=== PATIENT | male | born 1960 | race Caucasian/White ===

== ENCOUNTER → 2018-06-21 | Day surgery (SDC) | payer OTHER ==
[~2018-06-21] MED LIST: ACETAMINOPHEN650 MG RC; ACIDOPHILUS1 EAC1 PO; CEFTRIAXONE1 GM IV; CHLORHEXIDINE; CLONIDINE HCL0.1 MG PO; COMBIVENT RESPIM4 GM IH; ENOXAPARIN60 MG/0.6 SQ; FENTANYL CITRATE/PF 100MCG/2 ML INJ ONE; FUROSEMIDE40 MG/4 ML IV; IBUPROFEN200 MG PO; IOPAMIDOL 610MG/1ML 300 MG/ML VIAL IV ONE; KCL PO; LIDOCAINE HCL 2% LOCAL INJ 5 ML SDV VIAL INJ ONE; MIDAZOLAM HCL 2 MG/2 ML VIAL ONE; MUCINEX DM ER1 EACH PO; ONDANSETRON HCL INJ 2 MG/ML VIAL ONE; PROPOFOL IV EMULSION 10 MG/ML 20 ML VIAL ONE; ROCURONIUM BROMIDE 10 MG/ML 5ML VIAL ONE; SENNA/DOCUSATE PO; SEVOFLURANE INHAL SOLN 250 ML PEN BTL ONE; SUCCINYLCHOLINE 200 MG/10 ML SYR ONE; TAMSULOSIN HCL0.4 MG PO; ZOFRAN ODT4 MG; azithromycin
--- OUTSIDE RECORDS SUMMARY | 2018-06-21 12:58 | XMS REPORT | Clinical Summary ---
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 Disp. Refills Start End Date Status Date ipratropium-albuterol Take 3 mL by nebulization 270 mL 0 06/04/20 07/04/20 Active (DUO-NEB) 0.5-2.5 mg/mL every 6 (six) hours while 18 18 nebulizer awake for 30 days. furosemide (LASIX) 40 mg Take 1 tablet (40 mg 60 tablet 0 06/04/20 07/04/20 Active tablet total) by mouth 2 (two) 18 18 times a day for 30 days. diphenhydrAMINE Take by mouth 4 (four) 05/28/20 Discontin (BENADRYL) 12.5 mg/5 mL times a day as needed for 18 ued liquid allergies. acetaminophen (TYLENOL) Take 325 mg by mouth 05/28/20 Discontin 325 MG tablet every 6 (six) hours as 18 ued needed for fever. Active Problems Problem Noted Date Other sleep apnea 05/28/2018 Class 3 obesity due to excess calories with serious comorbidity and body 05/28/2018 mass index (BMI) of 50.0 to 59.9 in adult Resolved Problems Problem Noted Date Resolved Date Diastolic heart failure (HCC) 05/29/2018 06/04/2018 Community acquired pneumonia of right lower lobe of lung (HCC) 05/29/2018 06/04/2018 Respiratory distress 05/28/2018 06/04/2018 Encounters Date Type Specialty Care Team Description 06/04/2018 Documentation Pulmonology Jake Fragoso MD 05/28/2018 [facility] Cresencio Jacobs MD Respiratory distress - Encounter Aris Harman DO (Primary Dx); 06/04/2018 Winifred Pelaez Pulmonary congestion; Mansoor Rosales MD Pitting edema; Pneumonia due to infectious organism, unspecified laterality, unspecified part of lung; COPD exacerbation after 06/20/2017 Family History Medical History Relation Name Comments Hypertension Father Relation Name Status Comments Father Social History Tobacco Use Types Packs/Day Years Used Date Former Smoker Cigarettes 0.5 08/20/1987 - 08/20/1988 Smokeless Tobacco: Former User Alcohol Use Drinks/Week oz/Week Comments No Sex Assigned at Date Recorded Not on file Last Filed Vital Signs Vital Sign Reading Time Taken Blood Pressure 124/64 06/04/2018 6:00 PM CDT Pulse 82 06/04/2018 6:00 PM CDT Temperature 36.4 C (97.5 F) 06/04/2018 3:00 PM CDT Respiratory Rate 22 06/04/2018 5:00 PM CDT Oxygen Saturation 91% 06/04/2018 5:00 PM CDT Inhaled Oxygen - - Concentration Weight 133 kg (294 lb 1.6 oz) 06/02/2018 5:00 AM CDT Height 172.7 cm (5' 8") 05/28/2018 1:32 PM CDT Body Mass Index 44.72 06/02/2018 5:00 AM CDT Plan of Treatment Health Maintenance Due Date Last Done Comments COLON CANCER SCREENING 11/07/2011 SHINGRIX VACCINE (#1) 11/07/2011 INFLUENZA VACCINE 03/31/2018 Procedures Procedure Name Priority Date/Time Associated Diagnosis Comments ESTIMATED GFR Routine 06/04/2018 Results for this 4:48 AM CDT procedure are in the results section. COMPREHENSIVE METABOLIC Routine 06/04/2018 Results for this PANEL 4:48 AM CDT procedure are in the results section. HC COMPLETE BLD COUNT Routine 06/04/2018 Results for this W/AUTO DIFF 4:48 AM CDT procedure are in the results section. XR CHEST 2 VW Routine 06/03/2018 Results for this 12:44 PM CDT procedure are in the results section. B NATRIURETIC PEPTIDE Routine 06/03/2018 Results for this 4:10 AM CDT procedure are in the results section. HIV 1, 2 ANTIBODY Routine 06/03/2018 Results for this 4:10 AM CDT procedure are in the results section. ESTIMATED GFR Routine 06/03/2018 Results for this 4:10 AM CDT procedure are in the results section. COMPREHENSIVE METABOLIC Routine 06/03/2018 Results for this PANEL 4:10 AM CDT procedure are in the results section. HC COMPLETE BLD COUNT Routine 06/03/2018 Results for this W/AUTO DIFF 4:10 AM CDT procedure are in the results section. ESTIMATED GFR Routine 06/02/2018 Results for this 5:23 AM CDT procedure are in the results section. COMPREHENSIVE METABOLIC Routine 06/02/2018 Results for this PANEL 5:23 AM CDT procedure are in the results section. HC COMPLETE BLD COUNT Routine 06/02/2018 Results for this W/AUTO DIFF 5:23 AM CDT procedure are in the results section. ESTIMATED GFR Routine 06/01/2018 Results for this 4:22 AM CDT procedure are in the results section. HC COMPLETE BLD COUNT Routine 06/01/2018 Results for this W/AUTO DIFF 4:22 AM CDT procedure are in the results section. BASIC METABOLIC PANEL Routine 06/01/2018 Results for this 4:22 AM CDT procedure are in the results section. ESTIMATED GFR Routine 05/31/2018 Results for this 4:11 AM CDT procedure are in the results section. BASIC METABOLIC PANEL Routine 05/31/2018 Results for this 4:11 AM CDT procedure are in the results section. MAGNESIUM LEVEL Routine 05/31/2018 Results for this 4:11 AM CDT procedure are in the results section. CBC WITH PLATELET AND Routine 05/31/2018 Results for this DIFFERENTIAL 4:11 AM CDT procedure are in the results section. XR CHEST 1 VW PORTABLE Routine 05/30/2018 Results for this 6:52 AM CDT procedure are in the results section. LIPID PANEL Routine 05/30/2018 Results for this 4:12 AM CDT procedure are in the results section. HEMOGLOBIN A1C Routine 05/30/2018 Results for this 4:12 AM CDT procedure are in the results section. ESTIMATED GFR Routine 05/30/2018 Results for this 4:12 AM CDT procedure are in the results section. BASIC METABOLIC PANEL Routine 05/30/2018 Results for this 4:12 AM CDT procedure are in the results section. MAGNESIUM LEVEL Routine 05/30/2018 Results for this 4:12 AM CDT procedure are in the results section. CBC WITH PLATELET AND Routine 05/30/2018 Results for this DIFFERENTIAL 4:12 AM CDT procedure are in the results section. XR CHEST 1 VW PORTABLE Timed 05/29/2018 Results for this 6:43 AM CDT procedure are in the results section. ESTIMATED GFR Routine 05/29/2018 Results for this 5:10 AM CDT procedure are in the results section. PHOSPHORUS LEVEL Routine 05/29/2018 Results for this 5:10 AM CDT procedure are in the results section. MAGNESIUM LEVEL Routine 05/29/2018 Results for this 5:10 AM CDT procedure are in the results section. BASIC METABOLIC PANEL Routine 05/29/2018 Results for this 5:10 AM CDT procedure are in the results section. HC COMPLETE BLD COUNT Routine 05/29/2018 Results for this W/AUTO DIFF 5:10 AM CDT procedure are in the results section. URINE DRUGS OF ABUSE Routine 05/28/2018 Results for this SCREEN 6:00 PM CDT procedure are in the results section. LEGIONELLA URINARY Routine 05/28/2018 Results for this ANTIGEN 2:43 PM CDT procedure are in the results section. STREPTOCOCCUS PNEUMONIAE Routine 05/28/2018 Results for this URINARY ANTIGEN 2:43 PM CDT procedure are in the results section. ECHOCARDIOGRAM 2D Routine 05/28/2018 Results for this COMPLETE W MMODE SPECTRAL 1:31 PM CDT procedure are in the COLOR DOPPLER ([id number]) results section. TROPONIN Timed 05/28/2018 Results for this 12:10 PM CDT procedure are in the results section. RESPIRATORY PATHOGEN STAT 05/28/2018 Results for this PANEL 8:28 AM CDT procedure are in the results section. INFLUENZA ANTIGEN Routine 05/28/2018 Results for this 8:28 AM CDT procedure are in the results section. XR CHEST 1 VW PORTABLE STAT 05/28/2018 Results for this 7:44 AM CDT procedure are in the results section. VENOUS BLOOD GAS STAT 05/28/2018 Results for this 7:25 AM CDT procedure are in the results section. BLOOD CULTURE, AEROBIC & Routine 05/28/2018 Results for this ANAEROBIC 7:25 AM CDT procedure are in the results section. CREATINE KINASE, TOTAL STAT 05/28/2018 Results for this (CPK) 7:15 AM CDT procedure are in the results section. LACTIC ACID LEVEL, SEPSIS STAT 05/28/2018 Results for this - NOW AND REPEAT 2X EVERY 7:15 AM CDT procedure are in the 3 HOURS results section. ESTIMATED GFR STAT 05/28/2018 Results for this 7:15 AM CDT procedure are in the results section. B NATRIURETIC PEPTIDE STAT 05/28/2018 Results for this 7:15 AM CDT procedure are in the results section. TROPONIN STAT 05/28/2018 Results for this 7:15 AM CDT procedure are in the results section. COMPREHENSIVE METABOLIC STAT 05/28/2018 Results for this PANEL 7:15 AM CDT procedure are in the results section. HC COMPLETE BLD COUNT STAT 05/28/2018 Results for this W/AUTO DIFF 7:15 AM CDT procedure are in the results section. BLOOD CULTURE, AEROBIC & Routine 05/28/2018 Results for this ANAEROBIC 7:15 AM CDT procedure are in the results section. ECG ED PRELIMINARY Routine 05/28/2018 Results for this INTERPRETATION 7:11 AM CDT procedure are in the results section. NH CRITICAL CARE, E/M Routine 05/28/2018 Results for this 30-74 MINUTES 7:11 AM CDT procedure are in the results section. ECG 12-LEAD STAT 05/28/2018 Results for this 7:09 AM CDT procedure are in the results section. after 06/20/2017 Results * Estimated GFR (06/04/2018 4:48 AM) Only the most recent of 8 results within the time period is included. Estimated GFR 67 mL/min/1.73 m2 [facility] Comment: PATHOLOGY AND [employer] GENOMIC MEDICINE rpretation G1 >=90 Normal or high G2 60-89Mildly decreased [id number] Mildly to moderately decreased [id number] Moderately to severely decreased G4 15-29Severely decreased G5 <15Kidney failure The eGFR was calculated using the Chronic Kidney Disease Epidemiology Collaboration (CKD-EPI) equation. Interpretation is based on recommendations of the National Kidney Foundation-Kidney Disease Outcomes Quality Initiative (NKF-KDOQI) published in 2014. Specimen Plasma specimen Performing Organization Address City/State/Zipcode Phone Number [facility] [address] [place] [address] PATHOLOGY AND GENOMIC MEDICINE * CBC with platelet and differential (06/04/2018 4:48 AM) Only the most recent of 8 results within the time period is included. WBC 10.1 4.2 - 11.0 k/uL [facility] OF PATHOLOGY AND GENOMIC MEDICINE RBC 5.96 (H) 4.04 - 5.86 m/uL [facility] OF PATHOLOGY AND GENOMIC MEDICINE HGB 17.3 13.0 - 17.3 g/dL [facility] OF PATHOLOGY AND GENOMIC MEDICINE HCT 55.9 (H) 34.0 - 45.0 % [facility] OF PATHOLOGY AND GENOMIC MEDICINE MCV 93.8 80.0 - 98.0 fL [facility] OF PATHOLOGY AND GENOMIC MEDICINE MCH 29.0 27.0 - 34.0 pg [facility] OF PATHOLOGY AND GENOMIC MEDICINE MCHC 30.9 (L) 31.5 - 36.5 g/dL [facility] OF PATHOLOGY AND GENOMIC MEDICINE RDW - SD 48.2 37.0 - 51.0 fL [facility] OF PATHOLOGY AND GENOMIC MEDICINE MPV 10.7 (H) 7.4 - 10.4 fL [facility] OF PATHOLOGY AND GENOMIC MEDICINE Platelet count 170 150 - 400 k/uL [facility] OF PATHOLOGY AND GENOMIC MEDICINE Nucleated RBC 0.00 /100 WBC [facility] OF PATHOLOGY AND GENOMIC MEDICINE Neutrophils 81.3 (H) 36.0 - 66.0 % [facility] OF PATHOLOGY AND GENOMIC MEDICINE Lymphocytes 8.5 (L) 24.0 - 44.0 % [facility] OF PATHOLOGY AND GENOMIC MEDICINE Monocytes 9.0 (H) 0.0 - 6.0 % [facility] OF PATHOLOGY AND GENOMIC MEDICINE Eosinophils 0.7 0.0 - 6.0 % [facility] OF PATHOLOGY AND GENOMIC MEDICINE Basophils 0.2 0.0 - 1.2 % [facility] PATHOLOGY AND GENOMIC MEDICINE Immature granulocytes 0.3 0.0 - 1.0 % [facility] OF PATHOLOGY AND GENOMIC MEDICINE Specimen Blood Performing Organization Address City/State/Zipcode Phone Number [place] [phone] [place] [address] PATHOLOGY AND GENOMIC MEDICINE * Comprehensive metabolic panel (06/04/2018 4:48 AM) Only the most recent of 4 results within the time period is included. Sodium 141 135 - 150 mEq/L [facility] OF PATHOLOGY AND GENOMIC MEDICINE Potassium 3.6 3.5 - 5.0 mEq/L [facility] OF PATHOLOGY AND GENOMIC MEDICINE Chloride 88 (L) 98 - 112 mEq/L [facility] OF PATHOLOGY AND GENOMIC MEDICINE CO2 43 (HH) 24 - 31 mmol/L [facility] OF Comment: PATHOLOGY AND Results called to and read [employer] [facility] back by JOAQUIN VAUGHAN RN ([facility]) at05:46 06/04/2018by __VR. Anion gap 10@ANIO 7 - 15 mEq/L [facility] OF PATHOLOGY AND GENOMIC MEDICINE BUN 35 (H) 7 - 18 mg/dL [facility] OF PATHOLOGY AND GENOMIC MEDICINE Creatinine 1.20 0.70 - 1.20 mg/dL [facility] OF PATHOLOGY AND GENOMIC MEDICINE Glucose 124 (H) 65 - 100 mg/dL [facility] OF PATHOLOGY AND GENOMIC MEDICINE Calcium 9.3 8.3 - 10.2 mg/dL [facility] OF PATHOLOGY AND GENOMIC MEDICINE Protein 8.1 6.3 - 8.3 g/dL [facility] OF PATHOLOGY AND GENOMIC MEDICINE Albumin 3.6 3.5 - 5.0 g/dL [facility] OF PATHOLOGY AND GENOMIC MEDICINE A/G ratio 0.8 0.7 - 3.8 [facility] OF PATHOLOGY AND GENOMIC MEDICINE Alkaline phosphatase 61 0 - 129 U/L [facility] PATHOLOGY AND GENOMIC MEDICINE AST 50 10 - 50 U/L [facility]MENT OF PATHOLOGY AND GENOMIC MEDICINE ALT 120 (H) 5 - 50 U/L [facility] OF PATHOLOGY AND GENOMIC MEDICINE Total bilirubin 1.5 (H) 0.2 - 1.2 mg/dL [facility] OF PATHOLOGY AND GENOMIC MEDICINE Specimen Plasma specimen Performing Organization Address City/State/Zipcode Phone Number [facility] OF [facility] [place] [address] PATHOLOGY AND GENOMIC MEDICINE * XR Chest 2 Vw (06/03/2018 12:44 PM) Narrative Performed At EXAMINATION:XR CHEST 2 VW RADIANT CLINICAL HISTORY:Atelectasis COMPARISON:05/30/2018. FINDINGS: Two views of the chest demonstrate normal cardiomediastinal silhouette. Pulmonary vasculature is within normal limits. Resolution of bibasilar platelike subsegmental axis are seen. Left lower lobe parenchymal scarring as prior. There is no evidence of consolidation or pleural effusion.. Regional osseous structures is unremarkable. IMPRESSION: No radiographic evidence of acute cardiopulmonary process or pneumonia. Interval resolution of bibasilar platelike subsegmental atelectasis. [id number] Procedure Note Hm Interface, Radiology Results Incoming - 06/03/2018 1:17 PM CDT EXAMINATION: XR CHEST 2 VW CLINICAL HISTORY: Atelectasis COMPARISON: 05/30/2018. FINDINGS: Two views of the chest demonstrate normal cardiomediastinal silhouette. Pulmonary vasculature is within normal limits. Resolution of bibasilar platelike subsegmental axis are seen. Left lower lobe parenchymal scarring as prior. There is no evidence of consolidation or pleural effusion.. Regional osseous structures is unremarkable. IMPRESSION: No radiographic evidence of acute cardiopulmonary process or pneumonia. Interval resolution of bibasilar platelike subsegmental atelectasis. [id number] Performing Organization Address City/State/Zipcode Phone Number [place] [address] [place] [address] * HIV 1, 2 antibody (06/03/2018 4:10 AM) HIV 1, 2 antibody Non-Reactive Non-reactive [facility] OF Comment: PATHOLOGY AND Starting from November 27 2015, [employer] MEDICINE 4th generation HIV screening and confirmation assays are in use at [facility], consistent with the CDC-recommended algorithm. The screening test detects antibodies to HIV-1, HIV-2 and the p24 antigen. Positive screening results will be automatically reflexed to a HIV-1/HIV-2 differentiation assay. Indeterminant HIV-1 results will be further automatically reflexed to a nucleic acid test for detection of acute infection. Western blot will no longer be performed as a confirmation test. For a quick reference guide on the testing algorithm, please refer to: http://stacks.cdc.gov/view/cdc /36663. Performing Organization Address City/[facility] Cent[facility] Phone Number [facility] OF [address] [place] [address] PATHOLOGY AND GENOMIC MEDICINE * B natriuretic peptide (06/03/2018 4:10 AM) Only the most recent of 2 results within the time period is included. BNP <3 0 - 100 pg/mL [facility] OF PATHOLOGY AND GENOMIC MEDICINE Performing Organization Address City/State/Zipcode Phone Number [facility] OF [address] [place] [address] PATHOLOGY AND GENOMIC MEDICINE * Basic metabolic panel (06/01/2018 4:22 AM) Only the most recent of 4 results within the time period is included. Sodium 144 135 - 150 mEq/L [facility] OF PATHOLOGY AND GENOMIC MEDICINE Potassium 3.6 3.5 - 5.0 mEq/L [facility] OF PATHOLOGY AND GENOMIC MEDICINE Chloride 92 (L) 98 - 112 mEq/L [facility] OF PATHOLOGY AND GENOMIC MEDICINE CO2 45 (HH) 24 - 31 mmol/L [facility] OF Comment: PATHOLOGY AND Results called to and read [facility] back by ROBBY LAL RN AT 05:1110 BY LB. Anion gap 7@ANIO 7 - 15 mEq/L [facility] OF PATHOLOGY AND GENOMIC MEDICINE BUN 29 (H) 7 - 18 mg/dL [facility] OF PATHOLOGY AND GENOMIC MEDICINE Creatinine 1.10 0.70 - 1.20 mg/dL [facility] OF PATHOLOGY AND GENOMIC MEDICINE Glucose 109 (H) 65 - 100 mg/dL [facility] OF PATHOLOGY AND GENOMIC MEDICINE Calcium 9.3 8.3 - 10.2 mg/dL [facility] OF PATHOLOGY AND GENOMIC MEDICINE Specimen Plasma specimen Performing Organization Address City/[facility]/[place] [address] PATHOLOGY AND GENOMIC MEDICINE * Magnesium level (05/31/2018 4:11 AM) Only the most recent of 3 results within the time period is included. Magnesium 2.10 1.60 - 2.60 mg/dL [facility] OF PATHOLOGY AND GENOMIC MEDICINE Specimen Plasma specimen Performing Organization Address City/[facility] [place] [address] PATHOLOGY AND [facility] MEDICINE * XR Chest 1 Vw Portable (05/30/2018 6:52 AM) Only the most recent of 3 results within the time period is included. Narrative Performed At EXAMINATION:XR CHEST 1 VW PORTABLE RADIANT CLINICAL HISTORY:acute respiratory failure XR CHEST 1 VW PORTABLEimages are submitted COMPARISON:05/29/2018 Impression: The cardiac silhouette is enlarged. The pulmonary vasculature is within normal limits. The lung zones demonstrate minimal platelike atelectasis to be present at the lower lung bases. There is no pleural effusion or pneumothorax. There is minimal change in the appearance of the chest since the prior study. [id number] Procedure Note Hm Interface, Radiology Results Incoming - 05/30/2018 7:27 AM CDT EXAMINATION: XR CHEST 1 VW PORTABLE CLINICAL HISTORY: acute respiratory failure XR CHEST 1 VW PORTABLE images are submitted COMPARISON: 05/29/2018 Impression: The cardiac silhouette is enlarged. The pulmonary vasculature is within normal limits. The lung zones demonstrate minimal platelike atelectasis to be present at the lower lung bases. There is no pleural effusion or pneumothorax. There is minimal change in the appearance of the chest since the prior study. [id number] Performing Organization Address City/[facility] Centercode Phone Number [facility] [address] [place] [address] * Hemoglobin A1c (05/30/2018 4:12 AM) Hemoglobin A1C 5.6 4.0 - 6.0 % [facility] Comment: PATHOLOGY AND GENOMIC MEDICINE Less than 6% - Goal of therapy for Type II Diabetes Less than 7%-Goal of therapy for Type I Diabetes Less than 8%-Accepta ble control for Type I or Type II Diabetes Greater than 8%-Unacceptabl e control; action indicated. ([id number]) Specimen Blood Performing Organization Address City/[facility] Centercode Phone Number [facility] [address] [place] [address] PATHOLOGY AND GENOMIC MEDICINE * Lipid panel (05/30/2018 4:12 AM) Cholesterol 157 0 - 199 mg/dL [facility] OF PATHOLOGY AND GENOMIC MEDICINE Triglycerides 117 0 - 149 mg/dL [facility] OF PATHOLOGY AND GENOMIC MEDICINE HDL cholesterol 34 (L) 40 - 9,999 mg/dL [facility] OF PATHOLOGY AND GENOMIC MEDICINE LDL cholesterol 109 (H)Comment: Result 0 - 99 mg/dL [facility] OF obtained by direct LDL PATHOLOGY AND measurement GENOMIC MEDICINE Lipid panel See below [facility] interpretation Comment: PATHOLOGY AND Total Cholesterol GENOMIC MEDICINE (mg/dL) LDL Cholesterol (mg/dL) <200 Desirable <100 Optimal 200-239Borderline -[id number] 29Near or above optimal >=240High 130-159Borderline- high 160-189High >=190Very high HDL Cholesterol (mg/dL) Triglycerides (mg/dL) <40Low <150 Normal >=60 High 150-199Borderline- high 200-499High >=500Very high Risk Catergories that modify LDL goals. Risk Catergories LDL goal (mg/dL) CHD and CHD risk equivalent <100 (10-year risk >20%) Multiple (2+) risk factors <130 (10-year risk=<20%) 0-1 risk factors <160 (<10-year risk) Defining levels of lipids in metabolic syndrome Triglycerides >=150 mg/dL HDL Cholesterol Men <40 mg/dL Women <50 mg/dL Non-HDL cholesterol is a second target for therapy in persons with high triglycerides (>=200 mg/dL) Specimen Plasma specimen Performing Organization Address City/[facility] Centercode Phone Number [facility] [address] [place] [phone] PATHOLOGY AND GENOMIC MEDICINE * Phosphorus level (05/29/2018 5:10 AM) Phosphorus 3.4 2.4 - 4.5 mg/dL [facility] OF PATHOLOGY AND GENOMIC MEDICINE Specimen Plasma specimen Performing Organization Address [facility] Phone Number [facility] [address] [place] [address] PATHOLOGY AND GENOMIC MEDICINE * Urine drugs of abuse screen (05/28/2018 6:00 PM) Amphetamine screen, urine Negative [facility] OF PATHOLOGY AND GENOMIC MEDICINE Barbiturate screen, urine Negative [facility] OF PATHOLOGY AND GENOMIC MEDICINE Benzodiazepine screen, Negative [facility] OF urine PATHOLOGY AND GENOMIC MEDICINE Cannabinoid screen, urine Negative [facility] OF PATHOLOGY AND GENOMIC MEDICINE Cocaine screen, urine Negative [facility] OF PATHOLOGY AND GENOMIC MEDICINE Methadone metabolite Negative [facility] OF (EDDP), urine PATHOLOGY AND GENOMIC MEDICINE Opiates screen, urine Negative [facility] DEPARTMENT OF PATHOLOGY AND GENOMIC MEDICINE Phencyclidine screen, Negative [facility] DEPARTMENT OF urine PATHOLOGY AND GENOMIC MEDICINE Specimen Urine Performing Organization Address [facility] Phone Number [facility] DEPARTMENT [address] [place] [id number] PATHOLOGY AND GENOMIC MEDICINE * Streptococcus pneumoniae urinary antigen (05/28/2018 2:43 PM) Strep pneumo urinary Ag Negative for Streptococcus [facility] DEPARTMENT OF pneumoniae antigen. PATHOLOGY AND Comment: GENOMIC MEDICINE Specimen Information Specimen Source: Urine Specimen Site: Merchant Specimen Urine - Merchant Performing Organization Address City/[facility]/Zipcode Phone Number [facility] DEPARTMENT OF [address] [place] [address] PATHOLOGY AND GENOMIC MEDICINE * Legionella urinary antigen (05/28/2018 2:43 PM) Legionella urinary Negative for Legionella [facility] DEPARTMENT OF antigen serogroup 1 antigen. PATHOLOGY AND Comment: GENOMIC MEDICINE Specimen Information Specimen Source: Urine Specimen Site: Merchant Specimen Urine - Merchant Performing Organization Address City/State/Zipcode Phone Number [facility] DEPARTMENT OF [address] [place] [address] PATHOLOGY AND GENOMIC MEDICINE * Echocardiogram complete w contrast and 3D if needed (05/28/2018 1:31 PM) Velocity Ratio (V1/V2) 0.81 m/s [facility] IVS,d 1.14 cm [facility] EF 61.00 % [facility] LVPWD,d 1.16 cm [facility] AoV Mean PG 4.24 mmHg [facility] AV LVOT peak gradient 4.96 mmHg [facility] MV valve area p 1/2 5.05 cm2 [facility] method PV Pk Grad 2.86 mmHg [facility] E/A ratio 1.66 [facility] E wave decelartion time 150.23 msec [facility] LVOT Diam,S 2.24 cm [facility] LVOT area 3.94 cm2 [facility] LVOT Vmax 1.11 m/s [facility] LVOT VTI 0.19 m [facility] AoV Peak PG 7.49 mmHg [facility] MV Peak E Des 0.96 m/s [facility] MV stenosis pressure 1/2 43.57 ms [facility] time MV Peak A Des 0.58 m/s [facility] Ao Root Diameter 3.50 cm [facility] AoV Area, Vmax 3.19 cm2 [facility] AoV Area, VTI 3.23 cm2 [facility] AoV Vmax 1.37 m/s [facility] IVS/LVPW,2D 0.98 [facility] Left Atrium Dimension 4.01 cm [facility] Anterior LV,d 5.44 cm [facility] LV,s 3.65 cm [facility] PV VMAX 0.85 m/s [facility] MV E A ratio 1.65 [facility] Ao Root Diameter 3.50 cm [facility] LV SYS VOL 56.15 ml [facility] LV CASON VOL 143.97 ml [facility] LV SV Teich 2D 87.82 ml [facility] LV Vol s Teich PSAX 56.15 ml [facility] LVOT CO 7.79 l/min [facility] LVOT HR for LVOT CO 106.70 bpm [facility] AoV Vmn 0.98 [facility] IVS s 2D 1.60 [facility] LV FS Cube 2D 33.00 [facility] LV FS Teich 2D 33.00 [facility] AoV VTI 0.23 m [facility] LV EF,2D 69.93 % [facility] MV AE ratio 0.61 [facility] LVOT Vmn 0.72 [facility] Aov area Vmn 2.87 cm2 [facility] LVOT mean grad 2.47 mmHg [facility] MAX Pred HR 163.44 [facility] 85 of MPHR 138.93 [facility] Calc MPHR 163.44 bpm [facility] IVS pct thck PLAX 39.93 % [facility] LV SV Cube 2D 112.81 ml [facility] LV vol d cube 2D 161.32 ml [facility] LV vol s cube 2D 48.51 ml [facility] LVPW pct thck PLAX 36.40 % [facility] LVPW s PLAX 1.58 cm [facility] MV Decel slope 6.40 m/s2 [facility] Pred Exer Dur R1 9.24 [facility] Pred METS R1 9.52 [facility] Narrative Performed At [facility] Left ventricular systolic function is normal. Left Ventricular ejection fraction is 55 - 60%. Spectral Doppler shows impaired relaxation pattern of left ventricular diastolic filling. Performing Organization Address City/[facility]/Zipcode Phone Number [facility] [address] [place] [address] * Troponin (05/28/2018 12:10 PM) Only the most recent of 2 results within the time period is included. Troponin <0.30 0.00 - 0.30 ng/mL [facility] DEPARTMENT OF Comment: PATHOLOGY AND 0.11 - 1.49 GENOMIC MEDICINE ng/mlMay indicate increased risk of acute coronary syndrome. >=1.5 ng/ml Consistent with acute myocardial infarction. The diagnostic value of a single normal or non-diagnostic result is questionable.Serial samples at 2-6 hour intervals are required to rule out acute myocardial injury. Specimen Plasma specimen Performing Organization Address City/[facility]/Zipcode Phone Number [facility] DEPARTMENT OF [address] [place] [address] PATHOLOGY AND GENOMIC MEDICINE * Respiratory pathogen panel (05/28/2018 8:28 AM) Respiratory pathogen Negative for all pathogens [facility] DEPARTMENT OF panel tested: PATHOLOGY AND Negative for Adenovirus GENOMIC MEDICINE Negative for Coronavirus HKU1 Negative for Coronavirus NL63 Negative for Coronavirus 229E Negative for Coronavirus OC43 Negative for Human Metapneumovirus Negative for Rhinovirus/Enterovirus Negative for Influenza A Negative for Influenza A/H1 Negative for Influenza A/H3 Negative for Influenza A/H1-2009 Negative for Influenza B Negative for Parainfluenza Virus 1 Negative for Parainfluenza Virus 2 Negative for Parainfluenza Virus 3 Negative for Parainfluenza Virus 4 Negative for Respiratory Syncytial Virus Negative for Bordetella pertussis Negative for Chlamydophila pneumoniae Negative for Mycoplasma pneumoniae This real-time PCR assay detects the presence of nucleic acids (RNA or DNA) for the respiratory pathogens listed. A result of "Not-detected" does not exclude the possibility of the presence of one or more pathogens at concentrations less than the detectable limits of the assay. Comment: Specimen Information Specimen Source: Nares Specimen Site: Right Specimen Nares - Right Performing Organization Address City/[facility] Phone Number [facility] DEPARTMENT OF [address] [place] [address] PATHOLOGY AND GENOMIC MEDICINE * Influenza antigen (05/28/2018 8:28 AM) Influenza antigen Negative for Influenza A/B [facility] DEPARTMENT OF antigen. PATHOLOGY AND Comment: GENOMIC MEDICINE Specimen Information Specimen Source: Nares Specimen Site: Right Specimen Nares - Right Performing Organization Address City/[facility]/Zipcode Phone Number [facility] DEPARTMENT [address] [address] PATHOLOGY AND GENOMIC MEDICINE * Blood culture, aerobic & anaerobic (05/28/2018 7:25 AM) Only the most recent of 2 results within the time period is included. Blood culture isolate No growth after 5 days of [facility] DEPARTMENT OF incubation. PATHOLOGY AND Comment: GENOMIC MEDICINE Specimen Information Specimen Source: Blood Specimen Site: PERIFERAL LEFT ARM Specimen Blood Performing Organization Address City/[facility] Phone Number [facility] DEPARTMENT OF [address] [place] [address] PATHOLOGY AND GENOMIC MEDICINE * Venous blood gas (05/28/2018 7:25 AM) Lavatory Attendant KXA [facility] DEPARTMENT OF PATHOLOGY AND GENOMIC MEDICINE Collection site LAC [facility] DEPARTMENT OF PATHOLOGY AND GENOMIC MEDICINE O2 therapy Simpl O2 Msk [facility] DEPARTMENT OF PATHOLOGY AND GENOMIC MEDICINE pH, venous 7.279 (L) 7.320 - 7.420 units [facility] DEPARTMENT OF PATHOLOGY AND GENOMIC MEDICINE pCO2, venous 88.1 (H) 45.0 - 51.0 mmHg [facility] DEPARTMENT OF PATHOLOGY AND GENOMIC MEDICINE pO2, venous 40.0 25.0 - 40.0 mmHg [facility] DEPARTMENT OF PATHOLOGY AND GENOMIC MEDICINE O2 saturation, venous 68.4 40.0 - 70.0 % [facility] DEPARTMENT OF PATHOLOGY AND GENOMIC MEDICINE Base excess, venous 14.5 (H) -2.0 - 2.0 mEq/L [facility] DEPARTMENT OF PATHOLOGY AND GENOMIC MEDICINE Bicarbonate 41.3 (H) 21.0 - 28.0 mEq/L [facility] DEPARTMENT OF PATHOLOGY AND [employer] MEDICINE O2 content 14.3 VOL% [facility] DEPARTMENT OF PATHOLOGY AND [employer] MEDICINE FiO2, inspired O2% 80.0 % [facility] DEPARTMENT OF PATHOLOGY AND [employer] MEDICINE Carboxyhemoglobin 3.5 (H) 0.0 - 1.4 % [facility] DEPARTMENT OF Comment: PATHOLOGY AND Reference Ranges: GENOMIC MEDICINE Carboxyhemoglobin Non smoker: 0.0 - 2.0% Smoker: 2.1 - 5.0% Heavy smoker: 5.1 - 9% Methemoglobin 0.0 0.0 - 1.0 % [facility] DEPARTMENT OF PATHOLOGY AND [employer] MEDICINE Hemoglobin, blood gas 15.5 14.0 - 18.0 g/dL [facility] DEPARTMENT OF PATHOLOGY AND [employer] MEDICINE Specimen Blood Performing Organization Address [facility] [place] [address] PATHOLOGY AND [employer] MEDICINE * Lactic acid level, SEPSIS - Now and repeat 2x every 3 hours (05/28/2018 7:15 AM) Lactic acid 1.2 0.5 - 2.2 mmol/L [facility] DEPARTMENT OF PATHOLOGY AND [employer] MEDICINE Specimen Blood Performing Organization Address City/[facility] [place] [address] PATHOLOGY AND [employer] MEDICINE * Creatine kinase, total (CPK) (05/28/2018 7:15 AM) Creatine kinase 43 39 - 308 U/L [facility] DEPARTMENT OF PATHOLOGY AND [employer] MEDICINE Specimen Plasma specimen Performing Organization Address City/[facility] Phone Number [address] [place] [address] PATHOLOGY AND GENOMIC MEDICINE * ECG ED Preliminary Interpretation - NOT AN ORDER (05/28/2018 7:11 AM) Narrative Performed At Cresencio Jacobs MD 05/28/20188:55 AM ECG ED Preliminary Interpretation - Not an Order Performed by: CRESENCIO JACOBS Authorized by: CRESENCIO JACOBS ECG reviewed by ED Physician in the absence of a test borer: yes Interpretation: Interpretation: normal Rate: ECG rate:108 ECG rate assessment: tachycardic Rhythm: Rhythm: sinus tachycardia Ectopy: Ectopy: none QRS: QRS axis:Normal Conduction: Conduction: normal ST segments: ST segments:Normal T waves: T waves: flattening Flattening:AVL * CRITICAL CARE (05/28/2018 7:11 AM) Narrative Performed At Cresencio Jacobs MD 05/28/20188:55 AM Critical Care Performed by: CRESENCIO JACOBS Authorized by: CRESENCIO JACOBS Critical care provider statement: Critical care time (minutes):45 Critical care start time:05/28/2018 7:11 AM Critical care end time:05/28/2018 7:56 AM Critical care time was exclusive of:Separately billable procedures and treating other patients Critical care was necessary to treat or prevent imminent or life-threatening deterioration of the following conditions:Respiratory failure Critical care was time spent personally by me on the following activities:Development of treatment plan with patient or surrogate, discussions with primary provider, evaluation of patient's response to treatment, examination of patient, obtaining history from patient or surrogate, re-evaluation of patient's condition, pulse oximetry, ordering and review of radiographic studies, ordering and review of laboratory studies and ordering and performing treatments and interventions Waldo 'yes' if you are taking over critical care for this patient from another provider.: no * ECG 12 lead (05/28/2018 7:09 AM) Ventricular rate 108 [facility] Atrial rate 108 [facility] NH interval 138 [facility] QRSD interval 80 [facility] QT interval 318 [facility] QTC interval 426 [facility] P axis 1 68 [facility] QRS axis 1 67 [facility] T wave axis 56 [facility] EKG impression Sinus tachycardia-Otherwise [facility] normal ECG-In automated comparison with ECG of 19-NOV-2015 12:55,-No significant change was found- Performing Organization Address City/State/Zipcode Phone Number [facility] M[facility] [address] [place] [address] after 06/20/2017 Insurance Payer Benefit Subscriber ID Type Phone Address Plan / Group MEDICARE MEDICARE xxxxxxxxxxx Medicare [place], [place] PART A AND B
[2018-06-21 15:11] VITALS: BP 123/69
--- NOTE | 2018-06-21 20:29 | Operative Report ---
DATE OF PROCEDURE: June 21, 2018 SERVICE: Urology. PREOPERATIVE DIAGNOSES: 1. History of hematuria and bladder discharge. 2. Frequency. 3. Benign prostatic hypertrophy. POSTOPERATIVE DIAGNOSES: 1. History of hematuria and bladder discharge. 2. Frequency. 3. Benign prostatic hypertrophy. OPERATIONS PERFORMED: 1. Cystoscopy and bilateral retrograde pyelograms under fluoroscopic control. 2. Interpretation of x-ray, radiologist not present. 3. Supervision of fluoroscopy, radiologist not present. SMOKING TOBACCO PACKER HAND: None. ANESTHESIA: General. CLINICAL INDICATION NOTE: This is a 57-year-old patient who is presently in [facility] following COPD. The patient had several episodes of bladder discharge and hematuria probably related to previous placement of Merchant catheter before transferred to [place]. The patient was brought for assessment of the lower and upper tract. DESCRIPTION OF PROCEDURE AND FINDINGS: After proper level of anesthesia was achieved, the patient was placed in lithotomy position and prepped and draped in sterile fashion. Urethra inspected is unremarkable. Bladder is obstructed by large prostate. In the proximal urethra just distal to the prostate, irregular areas of trauma are noticed most probably secondary for the placement of a Merchant catheter. Bladder itself is quite trabeculated. No tumor or foreign bodies are identified. Both ureteral orifices are in normal position. A cone-tip catheter was used and bilateral retrograde pyelograms were done under fluoroscopic control. No intrinsic lesions were identified. There is minimal dilation of calices on the right side. The bladder was then irrigated and the scope was removed. Patient tolerated the procedure well, was transferred in satisfactory condition to recovery room. He will be sent back to [place]. He will be followed as needed. Job#: [id number]
== END ==
LOC: OR 12:55
PROVIDERS: ATTEND Urology
DX: R31.9 Hematuria, unspecified (principal); R35.8 Other polyuria; R35.0 Frequency of micturition; N40.1 Benign prostatic hyperplasia with lower urinary tract symptoms; N13.8 Other obstructive and reflux uropathy; S37.30XA Unspecified injury of urethra, initial encounter; X58.XXXA Exposure to other specified factors, initial encounter; J18.9 Pneumonia, unspecified organism; J44.9 Chronic obstructive pulmonary disease, unspecified; I11.0 Hypertensive heart disease with heart failure; I50.9 Heart failure, unspecified; G47.33 Obstructive sleep apnea (adult) (pediatric)
CPT/HCPCS: 52005; 74420; 93005; C1758; J2001; J2250; J2405; Q9967